=== PATIENT | female | born 1950 | race Caucasian/White ===

== ENCOUNTER 2017-11-28 14:09 | Emergency (ER) | payer OTHER ==
[2017-11-28 14:16] VITALS: BP 160/54; PULSE 70; TEMP 98; BMI 27.1
[2017-11-28] MEDS ORDERED: KETOROLAC TROMETHAMINE 60 MG/2 ML VIAL IM ONE (15:05)
[2017-11-28] MEDS ORDERED: CYCLOBENZAPRINE HCL 10 MG TABLET (FP) PO ONE (15:05)
--- NOTE | 2017-11-28 15:25 | PDOC ---
History of Present Illness - General Chief Complaint: Back Pain Stated Complaint: Back Pain Time Seen by Provider: 11/28/17 14:18 History Source: Patient Exam Limitations: No Limitations - History of Present Illness Initial Comments: 11/28/17 15:01 67-year-old female presented with complaints of low back pain for the past few days worsen with ambulation and movement. Patient does also states history of low back pain but not to this extent. Patient states a few days ago returned from [place] travel had a 7 1/2 hour flight. Patient does state the pain does radiate down her left leg feeling like pins and needles with electric -like sensation. Patient denies abdominal pain, chest pain, shortness breath, lower extremity edema, calf pain, coagulation disorder, or history of PE or DVT. Timing/Duration: intermittent Severity: mild Past History - Travel Traveled outside of the country in the last 30 days: Yes - Past Medical History Allergies/Adverse Reactions: Allergies Allergy/AdvReac Type Severity Reaction Status Date / Time No Known Allergies Allergy Verified 11/28/17 14:16 Home Medications: Ambulatory Orders Aspirin [ASA -] 81 mg PO DAILY 11/28/17 Diltiazem HCl [Diltiazem 24Hr Cd] 180 mg PO ASDIR 11/28/17 - Suicide/Smoking/Psychosocial Hx Smoking History: Never smoked Have you smoked in the past 12 months: No Information on smoking cessation initiated: No Hx Alcohol Use: No Drug/Substance Use Hx: No Patient Lives Alone: No Lives with/in: spouse/SO Review of Systems - Review of Systems Able to Perform ROS?: Yes Constitutional: No: Symptoms Reported HEENTM: No: Symptoms Reported Respiratory: No: Symptoms reported Cardiac (ROS): No: Symptoms Reported ABD/GI: No: Symptoms Reported Musculoskeletal: Yes: Back Pain, Muscle Pain Integumentary: No: Symptoms Reported Neurological: No: Numbness, Weakness Hematologic/Lymphatic: No: Symptoms Reported *Physical Exam - Vital Signs Last Vital Signs Temp Pulse Resp BP Pulse Ox 98.0 F 70 16 160/54 L 100 11/28/17 14:13 11/28/17 14:13 11/28/17 14:13 11/28/17 14:13 11/28/17 14:13 - Physical Exam General Appearance: Yes: Nourished, Appropriately Dressed. No: Apparent Distress Respiratory/Chest: positive: Lungs Clear, Normal Breath Sounds. negative: Respiratory Distress, Accessory Muscle Use Cardiovascular: positive: Regular Rhythm, Regular Rate. negative: Murmur Gastrointestinal/Abdominal: positive: Soft. negative: Tenderness Musculoskeletal: positive: Vertebral Tenderness (l4-l5 and left paraspinous, + left sciatica tenderness) Extremity: positive: Normal Capillary Refill, Normal Inspection, Normal Range of Motion, Calf Tenderness (- homans) Integumentary: positive: Normal Color, Warm, Moist. negative: Swelling Neurologic: positive: Motor Strength 5/5 ED Treatment Course - RADIOLOGY Radiology Studies Ordered: Category Date Time Status DUPLEX VASCUL US-1 LEG [US] Stat Ultrasound 11/28/17 14:46 Ordered Medical Decision Making - Medical Decision Making 11/28/17 15:04 Patient history of low back pain complaining of left low back and left leg. Patient was or recent travel cleared and 5 hours the past week. Patient will be ruled out for DVT. Ultrasound ordered along with Flexeril and Toradol IM. 11/28/17 16:08 dvt study -. discharge home with meds and ortho f/u *DC/Admit/Observation/Transfer Diagnosis at time of Disposition: Low back strain - Discharge Dispostion Disposition: HOME Condition at time of disposition: Good - Referrals Referrals: Ned Knutson MD [Staff Physician] - - Patient Instructions Printed Discharge Instructions: DI for Low Back Pain Additional Instructions: At this time you dvt study was negative. Please take medication as needed for pain. Follow up with referred physician. - Post Discharge Activity
[2017-11-28] MEDS ORDERED: CYCLOBENZAPRINE HCL 10 MG TABLET (FP) ONE (15:34)
[2017-11-28] MEDS ORDERED: KETOROLAC TROMETHAMINE 30 MG/1 ML VIAL ONE (15:34)
== END 2017-11-28 16:27 | disposition home or self-care (01) ==
LOC: JERFT 14:09
PROC: 3E0233Z Introduction of Anti-inflammatory into Muscle, Percutaneous Approach (ICD-10-PCS; principal; 2017-11-28)
DX: S39.012A Strain of muscle, fascia and tendon of lower back, initial encounter (principal); X50.1XXA Overexertion from prolonged static or awkward postures, initial encounter; Y93.89 Activity, other specified; Y92.89 Other specified places as the place of occurrence of the external cause; Y99.8 Other external cause status
CPT/HCPCS: 93971-TC; 99281-25